=== PATIENT | female | born 1985 ===

== ENCOUNTER → 2020-12-09 15:19 | Outpatient (CLI) | payer OTHER, SELFPAY ==
[2020-12-09 16:29] LABS: COVID19 -Nasal RAPID Negative (Negative)
== END ==
PROVIDERS: Visit Provider Nurse Practitioner Family
DX: Z20.822 Contact with and (suspected) exposure to COVID-19 (principal)
CPT/HCPCS: 87635

== ENCOUNTER → 2023-07-02 15:06 | Outpatient (CLI) | payer OTHER, SELFPAY | PROVIDERS: PCP Family Medicine; Visit Provider Physician Assistant | DX: N89.8 Other specified noninflammatory disorders of vagina (principal) | CPT/HCPCS: 87210 ==

== ENCOUNTER → 2024-03-03 16:14 | Outpatient (CLI) | payer OTHER, SELFPAY ==
--- NOTE | 2024-03-03 16:17 | DI.RAD.S_ITS ---
PROCEDURE: XR CHEST 2V INDICATIONS: Cough TECHNIQUE: 2 views of the chest were acquired. COMPARISON: None. FINDINGS: Surgical changes and devices: Pacemaker. Lungs and pleura: Lungs are clear. No pleural effusions or pneumothorax. Mediastinum: Mediastinal contours are normal. Heart size is normal. Bones and chest wall: No suspicious bony abnormalities. Soft tissues appear unremarkable. IMPRESSION: No acute cardiopulmonary abnormality is seen. Dictated by: Nupur Agee M.D. on 03/03/2024 at 21:17 Approved by: Nupur Agee M.D. on 03/03/2024 at 21:17
== END ==
PROVIDERS: PCP Family Medicine; Referring Provider Nurse Practitioner Family; Visit Provider Nurse Practitioner Family
DX: R05.9 Cough, unspecified (principal); Z95.0 Presence of cardiac pacemaker
CPT/HCPCS: 71046

== ENCOUNTER → 2025-10-13 17:31 | Outpatient (ROUT) | payer OTHER, SELFPAY | LOC: LAB 17:32 | PROVIDERS: PCP Family Medicine | DX: L03.90 Cellulitis, unspecified (principal); L73.8 Other specified follicular disorders; Z79.899 Other long term (current) drug therapy | CPT/HCPCS: 87070; 87102; 87205 ==